=== PATIENT | female | born 1980 | race Caucasian/White ===

== ENCOUNTER 2024-04-02 05:49 | Observation (INO) ==
[~2024-04-02 05:49] MED LIST: Chlorhexidine MOUTHWASH 0.12% 15 ML UDC ONE; Naloxone 0.4 mg VIAL 0.4 mg/ml 1 ml VIAL IV PRN; Ondansetron 4 mg VIAL 2 MG/ML 2 ml VIAL IV PRN; ceFAZolin 2 GM PREMIX 2 GM/50 ML BAG ONE
[2024-04-02] MEDS ORDERED: Propofol 10 MG/ML 20 ML BTL ONE (06:49)
[2024-04-02] MEDS ORDERED: fentaNYL 250 mcg/5 ml 50 MCG/ML 5 ml VIAL (250 MCG) ONE (06:50)
[2024-04-02] MEDS ORDERED: Sevoflurane BOTTLE ONE ×2 (06:50→06:51)
[2024-04-02] MEDS ORDERED: Lidocaine 2% PF 5 ML VIAL ONE (06:50)
[2024-04-02] MEDS ORDERED: Rocuronium 50 mg VIAL 10 mg/ml 5 ml VIAL (50 mg) ONE (06:50)
[2024-04-02] MEDS ORDERED: Midazolam 2 mg/2 ml VIAL 1 mg/ml 2 ml VIAL (2 mg) ONE (06:50)
[2024-04-02] MEDS ORDERED: Buffered Lidocaine 1% SYRIN 1 ml ONE (06:57)
[2024-04-02 07:01] LABS: Rapid COVID-19 Molecular Undetected (Undetected)
[2024-04-02] MEDS ORDERED: Lidocaine 1% w EPI 1:100,000 MDV 20 ML VIAL ONE (07:15)
[2024-04-02] MEDS ORDERED: ceFAZolin VIAL VIAL ONE (07:16)
[2024-04-02] MEDS ORDERED: Gelfoam Sponge SIZE 100 SPONGE ONE (07:16)
[2024-04-02] MEDS ORDERED: Thrombin 5,000 UNITS(BOVINE) for Ultrasound Guided Pseudoaneursym ONE (07:16)
[2024-04-02] MEDS ORDERED: Senna TAB 8.6 mg TAB PO PRN (09:26)
[2024-04-02] MEDS ORDERED: Dextran 70/Hypromellose Tears Eye Drops 15 ml BTL (for Artificials Tears) BOTH EYES PRN (09:26)
[2024-04-02] MEDS ORDERED: Calcium Carb (TUMS) 500 mg CHEW TAB PO PRN (09:26)
[2024-04-02] MEDS ORDERED: Morphine 2 MG/ML SYRINGE IV PRN (09:26)
[2024-04-02] MEDS ORDERED: Phenol 1.4% Throat Spray BTL MT PRN (09:26)
[2024-04-02] MEDS ORDERED: Benzocaine/Menthol LOZ MT PRN (09:26)
[2024-04-02] MEDS ORDERED: Albuterol 2.5mg/3 ml (0.083%) NEB.SOLN INH PRN (09:30)
[2024-04-02] MEDS ORDERED: Albuterol HFA INHALER 8 gm MDI INH PRN (09:30)
[2024-04-02] MEDS ORDERED: Prochlorperazine 5 mg/ml 2 ml VIAL (10 mg) IV PRN (09:34)
[2024-04-02] MEDS: HYDROmorphone 1 MG/1 ML SYRINGE IV SLOW PU PRN (09:36)
[2024-04-02] MEDS: Lactated Ringers 1000 ml BAG 1,000 ML IV SCH ×2 (10:54→11:21)
[2024-04-02] MEDS: Buffered Lidocaine 1% SYRIN 1 ml INTRADERM ONE (11:01)
[2024-04-02] MEDS: Nicotine PATCH 14 MG/24 HR PATCH TRANSDERM SCH (11:05)
[2024-04-02] MEDS: oxyCODONE SR 10 mg TAB PO SCH (19:50)
[2024-04-03 06:03] VITALS: BP 103/79
[2024-04-03] MEDS ORDERED: Nicotine PATCH 14 MG/24 HR PATCH TRANSDERM SCH (09:00)
== END 2024-04-03 10:30 | disposition home or self-care (01) ==
LOC: OR 05:49 → SSU 05:49
PROVIDERS: ADMIT Neurological Surgery; ATTEND Neurological Surgery